=== PATIENT | male | born 1960 | race African-American/Black ===

== ENCOUNTER 2024-09-04 02:24 | Emergency (ER) | payer SELFPAY ==
[~2024-09-04] VITALS: Ht 182.9 cm; Wt 86.3 kg
[2024-09-04 02:24] VITALS: PULSE 0; RESP 0; O2SAT 0
[2024-09-04] MEDS ORDERED: EPINEPHrine HCL 1 MG/10 ML SYRG IV ONE (02:25)
== END 2024-09-04 02:27 ==
LOC: EEVIPCON 02:24 → ER 02:24 → EDBD 02:24 → ER 02:27
DX: I46.9 Cardiac arrest, cause unspecified (principal); X99.8XXA Assault by other sharp object, initial encounter; Y93.89 Activity, other specified; Y92.89 Other specified places as the place of occurrence of the external cause; Y99.8 Other external cause status
CPT/HCPCS: 92950; 99285; J0171